=== PATIENT | male | born 1990 | race Caucasian/White ===

== ENCOUNTER 2023-01-09 13:34 | Day surgery (SDC) | payer OTHER, SELFPAY ==
[2023-01-09] VITALS (16 sets, daily range): BP systolic 152–178; BP diastolic 72–105; PULSE 85–100; RESP 16–18; TEMP 36.1–36.8; O2SAT 95–100; BMI 28.2
--- NOTE | 2023-01-09 13:57 | XRR_ITS ---
PROCEDURE INFORMATION: Exam: XR Left Shoulder Exam date and time: 01/09/2023 2:12 PM Age: 32 years old Clinical indication: Injury or trauma; Fall; Left; Injury details: Lt shoulder pain with limited rom; HX multiple dislocations; Prior surgery; Surgery date: 6+ months; Surgery type: Bilat shoulder surg age 18; PT unsure of exactly what was done. TECHNIQUE: Imaging protocol: Radiologic exam of the left shoulder. Views: 2 or more views. COMPARISON: No relevant prior studies available. FINDINGS: Bones/joints: No evidence of acute fracture. Anteroinferior dislocation of the humerus with respect to the glenoid. Mineralization is normal. Acromioclavicular joint is maintained. Soft tissues: Unremarkable. XR/XR shoulder LT min 2V* [id number] IMPRESSION: Left anterior glenohumeral joint dislocation.
--- NOTE | 2023-01-09 14:07 | ED_ITS ---
HPI - Extremity Problem General: Chief complaint: Extremity Injury, Upper Stated complaint: shoulder injury Time Seen by Provider: 01/09/23 14:07 Source: patient Mode of arrival: ambulatory History of Present Illness: 32-year-old male presents emergency room complaining of left shoulder pain. He said frequent dislocations in the past he is concerned that he may have dislocated again he was playing with his children felt a popping sensation. He has had surgery on it in the past as well. MD Complaint: joint pain Onset (ago): hour(s) Pain Consistency: constant Location: right (Shoulder) Quality: sharp Relieving factors: nothing Exacerbating factors: nothing Associated symptoms: Deny arthralgias, chest pain, fever(s), myalgias, rash or short of breath Review of Systems Const: Denies: fever(s) Card: Denies: chest pain Resp: Denies: dyspnea Musc: Denies: neck pain or back pain Skin/Breast: Denies: rash Physical Exam Const: GENERAL APPEARANCE: cooperative and comfortable ORIENTATION/CONSCIOUSNESS: Yes awake, Yes oriented to person, Yes oriented to place and Yes oriented to time HENMT: COMMON NORMALS: normocephalic, atraumatic and hearing grossly normal bilaterally HEAD & SCALP: normocephalic and atraumatic Resp: COMMON NORMALS: normal respiratory effort, No retractions, No use of accessory muscles and clear to auscultation bilaterally AUSCULTATION: clear to auscultation bilaterally Cardio: COMMON NORMALS: regular rate, regular rhythm and No murmurs present (Cardio) RATE: regular rate RHYTHM: regular rhythm Extremity: COMMON NORMALS: capillary refill normal, no clubbing, cyanosis or edema, no calf tenderness and no pedal edema OTHER: Obvious dislocation of the left shoulder neurovascularly distally radial pulses and sensation and muscle are strength are intact. Neuro: SENSORIUM/ORIENTATION: Yes oriented to person, Yes oriented to place and Yes oriented to time Skin: COMMON NORMALS: no rashes or lesions noted GENERAL SKIN EXAM: no rashes or lesions noted Procedures Orthopedic Joint Reduction Joint #1: Time Out Performed: Yes Side: left Joint Reduction Location: shoulder Analgesia: procedural sedation Shoulder Technique Used (if applicable): traction/counter-traction Patient Tolerated Procedure: no complications Additional Comments: Unable to achieve adequate sedation to allow for reduction. Procedural Sedation Indication: fracture/dislocation reduction ASA Class: I Preparation: bicycle mechanic applied, pulse oximeter, supplemental O2 applied, suction/airway equipment at bedside and IV secured Fentanyl: IV (Titrated to a total of 200 mcg) Midazolam: IV (Titrated) Midazolam dose (mg): 14 IV Propofol dose (mg): 200 (Titrated) Patient Tolerated Procedure: well and no complications Complications: none Course Vital Signs: Vital signs: Vital Signs Temperature 97 F L 01/09/23 17:39 Pulse Rate 90 01/09/23 17:53 Respiratory Rate 18 01/09/23 17:53 Blood Pressure 166/87 01/09/23 17:53 Pulse Oximetry 99 01/09/23 17:53 Oxygen Delivery Me thod Room Air 01/09/23 17:53 MDM - Extremity (Nontraumatic) Medical Decision Making Patient has an obvious anterior shoulder dislocation on x-ray. He states he has had this before. 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 He only had 1 beer today. We did attempt shoulder reduction was conscious sedation see his notes. Over approximately 20 to 25-minute. The patient had titrated doses of a total of 200 of propofol, 14 of Versed, and 200 of fentanyl. Despite all of these medications he remained awake and conversational and the entire time could not achieve the level of sedation and muscle relaxation needed to reduce his shoulder patient continued to actively oppose attempts to reduce throughout the entire procedure. Procedure was abandoned at that point I was concerned to continue to attempt sedate him would lead to oversedation and precipitated an critical airway event. Discussed with the patient's at the bedside and with the patient (although he was never fully sedated he remains somewhat altered from the medications). We will consult orthopedics and anesthesia for reduction in the OR, general anesthesia with attempted closed reduction possible open reduction if not successful. Dr. Martini is on-call and is agreed to come and consult on the patient I also discussed case with anesthesiology Dr. Gerber to review with him the medications that we have given In the operating room. In the emergency room. Medical Records I reviewed the patient's medical records. Lab Data I reviewed the patient's lab results. Radiology Impressions Shoulder X-Ray 01/09/23 13:57 IMPRESSION: Left anterior glenohumeral joint dislocation. All radiology interpretation(s) finalized by discharge Discharge Plan Discharge Patient Disposition: Placed in Observation Clinical Impression: Anterior dislocation of left shoulder Condition: Stable Discharge Orders: Discharge Order (Routine); Ordered 01/09/23 Ordered By: Angie Bishop Coding Level of Care Code ED Instructor Product Inspection for Sophie Dewitt
[2023-01-09] MEDS: propofol 10 mg/mL SDV 20 mL 200 MG IVP ×2 (14:51→15:25)
[2023-01-09] MEDS: midazolam 1 mg/mL INJ 2 mL 4 MG IVP ×2 (14:52→15:02)
[2023-01-09] MEDS: fentaNYL 50 mcg/mL INJ 2mL 100 MCG IVP ×2 (14:52→15:04)
[2023-01-09] MEDS: midazolam 1 mg/mL INJ 2 mL 6 MG IVP (15:03)
--- NOTE | 2023-01-09 16:45 | W.PM.OPSFHP ---
Same Day Surgery H&P Indication for Procedure/HPI DATE OF PROCEDURE: January 09, 2023 CHIEF COMPLAINT/INDICATIONFOR SURGICAL PROCEDURE: Left shoulder dislocation irreducible by emergency room physician PREOP DIAGNOSIS: Left shoulder dislocation PLANNED PROCEDURE: Operation Date: 01/09/23 16:40 Proposed Procedures p Closed Reduction Upper Extremity- Possible Open(Left) - Angie Bishop MD ROS Noncontributory Medications/Allergies* None Allergies/Adverse Reactions Allergy/AdvReac Type Severity Reaction Status Date / Time No Known Allergies Allergy Verified 01/09/23 14:40 Current Medications: None Pertinent History/Comorbid Conditions* None Negative except for bilateral shoulder surgeries Pertinent Exam Findings alert, oriented x 3, clear to auscultation bilaterally, regular rate & rhythm, operative site marked and procedure specific exam findings Neurologically intact distal to the dislocation. Related Problem List Diagnoses (1) Anterior dislocation of left shoulder: Recommendations Surgery/Procedure today Other Plans: Closed possible open reduction of left shoulder dislocation which was irreducible in the emergency department. Patient will be discharged home from postoperative recovery. Coding Level of Care Code Acute Code for [facility] Fwd Diagnoses Anterior dislocation of left shoulder S43.015A
[2023-01-09] MEDS: sodium chloride 0.9% 1,000 ML 30 ML IV (16:52)
--- NOTE | 2023-01-09 17:20 | ANES.PREANE2 ---
Pre-Anesthetic Assessment Height/Weight: Height 1.88 m Weight 99.79 kg Temp Pulse Resp BP Pulse Ox O2 Del Method 98.3 F 90 16 152/99 99 Room Air 01/09/23 13:44 01/09/23 16:16 01/09/23 16:16 01/09/23 16:16 01/09/23 16:16 01/09/23 16:16 Preop Diagnosis: Left shoulder dislocation Operation Date: 01/09/23 16:40 Proposed Procedures p Closed Reduction Upper Extremity- Possible Open(Left) - Angie Bishop MD Familial anesthetic complications: none Was Beta Matthew taken within 24 hours: N/A Was Clonidine taken within 24 hours: N/A Social Alcohol (Daily) and Tobacco Exam alert, oriented x 3 and regular rate & rhythm Airway Submandibular: within normal limits Cervical ROM: within normal limits Mallampati: Class II Dentition: full Pulmonary Chronic Obstructive Pulmonary Disease Anesthetic Plan ASA status: 2E Anesthesia: General Medications/Allergies Allergies Allergy/AdvReac Type Severity Reaction Status Date / Time No Known Allergies Allergy Verified 01/09/23 14:40 Current Medications Generic Name Dose Route Start Last Admin Trade Name Freq PRN Reason Stop Dose Admin Sodium Chloride 1,000 mls @ 30 mls/hr 01/09/23 16:30 01/09/23 16:52 Sodium Chloride 0.9% IV 01/10/23 16:29 30 mls/hr .Q24H LEBRON Administration Data Anesthesia Cardiac Studies: No Data to Display
--- NOTE | 2023-01-09 17:20 | PM.OP ---
Operative Report Date of procedure: January 09, 2023 Pre-op diagnosis: Reducible left shoulder dislocation, anterior-inferior Post-op diagnosis: Reducible left shoulder dislocation, anterior-inferior Post-op findings: Left anterior inferior shoulder dislocation Procedure done: Closed reduction left anterior inferior shoulder dislocation Surgeon: Angie Bishop MD Anesthesia: General (Mask with paralyzation, ASA 2) Estimated blood loss (mL): 0 IV fluids (mL): 100 Urine output (mL): 0 (No Taylor) Complications: None Findings: Irreducible anterior-inferior dislocation of the left shoulder Brief History: This 32-year-old was in his usual state of health playing with his children when he roughhouse to and had an anterior inferior shoulder dislocation. He presented to the emergency department, but the shoulder was unable to be reduced there. The decision was then made to proceed to general anesthesia with paralyzation to allow easier reduction. Procedure: Patient was brought to the operating theater and placed on the table in a beachchair position. General anesthesia was administered with succinylcholine and mask. The patient was ASA 2. After the patient demonstrated physical findings consistent with paralyzation as well as pain management, a traction manipulation maneuver was utilized to reduce the shoulder. The patient's shoulder reduced both audibly and visibly. Confirmation of position was obtained with fluoroscopy. The patient was then placed in a shoulder immobilizer and again position of the shoulder was confirmed prior to transfer to the recovery room. Related Problem List Diagnoses (1) Anterior dislocation of left shoulder:
--- NOTE | 2023-01-09 17:20 | ANE.PACU2 ---
Inpatient post-anesthesia follow up: Airway intact: Yes Vital signs: Temperature 98.3 F Pulse Rate 90 Respiratory Rate 16 Blood Pressure 152/99 Pulse Oximetry 99 Oxygen Delivery Me thod Room Air Oxygen Flow Rate Fraction of Inspir ed Oxygen Hydration adequate: Yes Nausea and vomiting: No Pain level: 2 Mental status: Baseline
--- NOTE | 2023-01-09 17:38 | XR_ITS ---
WS: [id number] C-ARM RADIOGRAPHS LEFT SHOULDER; 4 IMAGES HISTORY: LEFT SHOULDER CLOSED REDUCTION COMPARISON: Radiograph 01/09/2023 Imaging of the LEFT shoulder is submitted which demonstrates normal position of the humeral head with in the glenoid. No fractures are identified by this technique. Questionable slight flattening along t he posterior superior humeral head seen only on one image. IMPRESSION: 1. Satisfactory positioning of the LEFT humeral head and glenoid. 2. Mild flattening of the posterior lateral humeral head. Recommend radiographic evaluation for follo w-up examination to evaluate for Hill-Sachs.
== END 2023-01-09 15:28 | disposition home or self-care (01) ==
LOC: ER 14:31 → OR 15:28
PROVIDERS: Emergency Provider Family Medicine; Visit Provider Specialist
PROC: (CPT 23655; principal; 2023-01-09 16:30)
DX: S43.005A Unspecified dislocation of left shoulder joint, initial encounter (principal); X58.XXXA Exposure to other specified factors, initial encounter; J44.9 Chronic obstructive pulmonary disease, unspecified
CPT/HCPCS: 23655; 23650; 73030; 76000; 99152; J0330; J2250; J2704; J3010; J7030